=== PATIENT | male | born 1970 | race Caucasian/White ===

== ENCOUNTER 2016-06-23 07:17 | Day surgery (SDC) | payer BC ==
[2016-06-18 10:26] VITALS: BMI 34.7
[2016-06-23] MEDS ORDERED: PROPOFOL 20 ML ONE ×2 (07:23)
[2016-06-23 07:35] VITALS: TEMP 98.7
[2016-06-23 10:05] VITALS: BP 113/60; PULSE 78
--- NOTE | 2016-06-25 14:32 | PATH ---
Surgical Pathology Report Patient Name: DESTINY DONOHUE [facility]. Rec. #: [id number] /Age/Gender: 1970 (Age: 46) / M Account: [id number] Location: [facility]-ENDOSCOPY Taken: 06/23/2016 Received: 06/23/2016 Reported: 06/25/2016 Physicians: Nathaniel Nicole M.D. Specimen(s) Received BX SIGMOID Clinical History Family history colon cancer Colonic polyp Final Diagnosis COLON, SIGMOID, BIOPSY: TUBULAR ADENOMA. Electronically Signed Cornelius Palumbo M.D. Gross Description Received in formalin, labeled "sigmoid" is a chadwick, irregular portion of soft tissue measuring 0.2 cm. in greatest dimension. The specimen is submitted in toto in one cassette. [facility]/06/24/2016 [facility]/06/24/2016
== END 2016-06-23 10:10 | disposition home or self-care (01) ==
LOC: FASU-ENDO 07:17
PROVIDERS: ATTEND Internal Medicine Gastroenterology
PROC: 0D5N8ZZ Destruction of Sigmoid Colon, Via Natural or Artificial Opening Endoscopic (ICD-10-PCS; principal; 2016-06-23 09:14)
DX: Z12.11 Encounter for screening for malignant neoplasm of colon (principal); Z80.0 Family history of malignant neoplasm of digestive organs; D12.5 Benign neoplasm of sigmoid colon; K57.30 Diverticulosis of large intestine without perforation or abscess without bleeding
CPT/HCPCS: 88305-TC

== ENCOUNTER 2021-10-28 07:23 | Day surgery (SDC) | payer BC ==
[2021-10-26 13:04] VITALS: BMI 34.0
[2021-10-28] MEDS ORDERED: PROPOFOL 20 ML ONE ×4 (07:33)
[2021-10-28] MEDS ORDERED: LIDOCAINE HCL/PF 2% SDV 5ML VIAL ONE (07:33)
[2021-10-28 08:57] VITALS: TEMP 97.8
[2021-10-28 09:21] VITALS: BP 124/72; PULSE 71
== END 2021-10-28 09:21 | disposition home or self-care (01) ==
LOC: FASU-ENDO 07:23
PROVIDERS: ATTEND Internal Medicine Gastroenterology
PROC: 0DB48ZX Excision of Esophagogastric Junction, Via Natural or Artificial Opening Endoscopic, Diagnostic (ICD-10-PCS; 2021-10-28)
PROC: 0DB68ZX Excision of Stomach, Via Natural or Artificial Opening Endoscopic, Diagnostic (ICD-10-PCS; 2021-10-28)
PROC: 0DJD8ZZ Inspection of Lower Intestinal Tract, Via Natural or Artificial Opening Endoscopic (ICD-10-PCS; principal; 2021-10-28 08:23)
DX: Z12.11 Encounter for screening for malignant neoplasm of colon (principal); Z86.010 Personal history of colon polyps; Z80.0 Family history of malignant neoplasm of digestive organs; K29.50 Unspecified chronic gastritis without bleeding; K21.00 Gastro-esophageal reflux disease with esophagitis, without bleeding; K44.9 Diaphragmatic hernia without obstruction or gangrene; R12 Heartburn
CPT/HCPCS: 88305-TC; 88342-TC